=== PATIENT | female | born 1975 | race Caucasian/White ===

== ENCOUNTER 2018-04-26 10:16 | Emergency (ER) | payer MEDICAID ==
[2018-04-26 10:32] VITALS: BP 122/76; PULSE 74; RESP 19; TEMP 98.3; O2SAT 98
--- NOTE | 2018-04-26 12:12 | ED PDOC ---
Lower Extremity Pain/Injury Time Seen by Provider: 04/26/18 10:49 Chief Complaint (Nursing): Lower Extremity Problem/Injury Chief Complaint (Provider): Bilateral knee pain History Per: Patient History/Exam Limitations: no limitations Onset/Duration Of Symptoms: Other (x10 months) Current Symptoms Are (Timing): Still Present Severity: Moderate Pain Scale Rating Of: 6 Additional Complaint(s): 42 year old female presents to the ED for an evaluation of atraumatic bilateral knee pain for the last 10 months. She states the pain worsens with movement and ambulation. It is greater on the right side compared to the left side. Patient states yesterday she felt as if her knees were buckling, prompting visit today. Patient has not taken any medication for the pain [employer]. Her last menstrual period was yesterday. Denies falls, fever, other joint pain, rash, calf tenderness, SOB, cough, dyspnea, abdominal pain, N/V/D, or lower extremity swelling. PMD: Ronel Long Past Medical History Reviewed: Historical Data, Nursing Documentation, Vital Signs Vital Signs: Last Vital Signs Temp 98.3 F 04/26/18 10:31 Pulse 74 04/26/18 10:31 Resp 19 04/26/18 10:31 BP 122/76 04/26/18 10:31 Pulse Ox 98 04/26/18 10:31 - Medical History PMH: No Chronic Diseases - Surgical History Surgical History: (2x) - Family History Family History: States: Unknown Family Hx - Social History Current smoker - smoking cessation education provided: No Alcohol: None Drugs: Denies - Home Medications Home Medications: Ambulatory Orders Medication Instructions Recorded Acetaminophen [Acetaminophen 8 650 mg PO Q8 #24 tab 04/26/18 Hour] - Allergies Allergies/Adverse Reactions: Allergies Allergy/AdvReac Type Severity Reaction Status Date / Time aspirin Allergy VOMITING Verified 04/26/18 10:37 Penicillins Allergy RASH Verified 04/26/18 10:38 Review of Systems ROS Statement: Except As Marked, All Systems Reviewed And Found Negative Constitutional: Negative for: Fever Musculoskeletal: Positive for: Leg Pain (bilateral knee pain). Negative for: Other (falls, joint pain, calf tenderness, or lower extremity swelling) Skin: Negative for: Rash Physical Exam - Reviewed Nursing Documentation Reviewed: Yes Vital Signs Reviewed: Yes - Physical Exam Comments: GENERAL APPEARANCE: Patient is awake, alert, oriented x 3, in no acute distress , resting comfortably. SKIN: Warm, dry; (-) cyanosis. ENMT: Mucous membranes moist. NECK: Supple, FROM CHEST AND RESPIRATORY: (-) rales, (-) rhonchi, (-) wheezes; breath sounds equal bilaterally. Respirations even and nonlabored, speaking in full sentences. HEART AND CARDIOVASCULAR: (-) irregularity; (-) murmur, (-) gallop. ABDOMEN AND GI: Soft; (-) tenderness; (-) palpable mass (-) guarding (-) distention. BACK: (-) direct bony tenderness EXTREMITIES: (+) full ROM bilateral knees with (+) pain on extension, (-) tenderness, (-) effusion, (-) ecchymosis, (-) erythema, (-) instability on valgus or varus stress, (-) anterior/posterior drawer test, (-) deformity (-) calf tenderness (-) palpable cord. Distal pulses good bilaterally. Sensation intact throughout. NEURO AND PSYCH: Mental status as above. Gait steady, speech clear. (-) facial asymmetry (-) aphasia (-) facial droop. - ECG O2 Sat by Pulse Oximetry: 98 (RA) Pulse Ox Interpretation: Normal Medical Decision Making Medical Decision Making: Time: 1101 Initial Impression: acute knee pain, consider osteoarthritis Initial Plan: --Tylenol 650mg --Ultram 50mg (Patient is not driving home) --Reevaluation 1145 On re-evaluation, patient reports improvement of symptoms. Ambulating in ED with steady, unassisted gait. On exam, patient remains AAOx3, in no acute distress. Lungs clear to auscultation, cardiac RRR, abdomen soft, non-tender, repeat neuro exam shows no focal findings. Vitals stable, stable for discharge. Lab/Diagnostic results d/w the patient in great detail. Diagnosis of knee pain, likely arthritis d/w the patient. Based on history, exam and diagnostic results, plan will be for outpatient follow up. Advised to follow up with primary care physician/ortho in 1-2 days without fail. Advised to take medication as prescribed. Return to the emergency room at any time for any new or worsening symptoms. Patient states she fully agrees with and understands discharge instructions. States that she agrees with the plan and disposition. Verbalized and repeated discharge instructions and plan. I have given the patient opportunity to ask any additional questions. Scribe Attestation: Documented by Jim Gottlieb, acting as a scribe for Naima Macias PA-C Provider Scribe Attestation: All medical record entries made by the Scribe were at my direction and personally dictated by me. I have reviewed the chart and agree that the record accurately reflects my personal performance of the history, physical exam, medical decision making, and the department course for this patient. I have also personally directed, reviewed, and agree with the discharge instructions and disposition. Disposition - Clinical Impression Clinical Impression: Knee pain, Osteoarthritis - Patient ED Disposition Is Patient to be Admitted: No Counseled Patient/Family Regarding: Diagnosis, Need For Followup, Rx Given - Disposition Referrals: Walter Pereira III, MD [Staff Provider] - Disposition: Routine/Home Disposition Time: 11:46 Condition: STABLE Additional Instructions: FOLLOW UP WITH PMD/ORTHO IN 1-2 DAYS WITHOUT FAIL. RETURN TO ED WITH ANY NEW OR WORSENING SYMPTOMS. Prescriptions: Acetaminophen [Acetaminophen 8 Hour] 650 mg PO Q8 #24 tab Instructions: Osteoarthritis (DC), Knee Pain (DC) Forms: userADgents (Azerbaijani) Print Language: YORUBA - POA Present On Arrival: None
== END 2018-04-26 11:52 | disposition home or self-care (01) ==
LOC: H.ER 10:16
DX: M17.0 Bilateral primary osteoarthritis of knee (principal); Z88.0 Allergy status to penicillin